=== PATIENT | male | born 1955 | race Caucasian/White ===

== ENCOUNTER 2019-07-26 12:24 | Emergency (ER) | payer OTHER ==
[2019-07-26 14:18] LABS: #Eosinphils 0.1 thou/uL (0.0-0.7); #Monocytes 0.4 thou/uL (0.11-0.59); #Neutrophils 1.9 thou/uL (1.40-6.50); %Basophils 1.4 % (0.0-1.0); %Eosinophils 1.5 % (0.0-10.0); %Lymphocytes 29.6 % (21.0-51.0); %Monocytes 11.4 % (0.0-10.0); %Neutrophils 56.1 % (42.0-75.0); Hemoglobin 8.5 g/dL (14.0-18.0); Mean Corpuscular HGB CONC 31.5 g/dL (32.0-36.0); Mean Corpuscular Hemoglobin 23.3 pg (27.0-31.0); Mean Platelet Volume 7.6 fL (7.4-10.4); Platelet Count 201 thou/uL (130-400); RBC Distribution Width 20.8 % (11.5-14.5); Red Blood Cell (RBC) Count 3.65 mill/uL (4.70-6.10); White Blood Cell (WBC) Count 3.5 thou/uL (4.8-10.8)
[2019-07-26 14:19] LABS: Anisocytosis SLIGHT = 6-15 cells (100X) (0-5/hpf); Elliptocytes SLIGHT = 2-5 cells (100X) (0-1/hpf); Hypochromia SLIGHT = 6-15 cells (100X) (0-5/hpf); MDiff Complete? YES; Microcytosis SLIGHT = 6-15 cells (100X) (0-5/hpf); Platelet Morphology Comment Appears Adequate; Target Cells SLIGHT = 2-5 cells (100X) (0-1/hpf)
[2019-07-26 14:25] LABS: ALT (SGPT) 39 U/L (8-55); AST (SGOT) 44 U/L (5-34); Albumin 3.5 g/dL (3.4-4.8); Alkaline Phosphatase 107 U/L (40-110); Anion Gap 15 mmol/L (10-20); BUN (Urea Nitrogen) 7 mg/dL (8.4-25.7); Bilirubin, Total 0.2 mg/dL (0.2-1.2); Calc. Creatinine Clearance 0 mL/min (70-130); Calcium 8.4 mg/dL (7.8-10.44); Carbon Dioxide 22 mmol/L (23-31); Chloride 85 mmol/L (98-107); Estimated GFR-MDRD Greater than 90; Globulin 3.8 g/dL (2.4-3.5); Glucose 142 mg/dL (80-115); Potassium 4.5 mmol/L (3.5-5.1); Protein, Total 7.3 g/dL (5.8-8.1)
[2019-07-26] MEDS ORDERED: Cefepime 2 GM VIAL ONE (14:27)
[2019-07-26] MEDS ORDERED: Sodium Chloride 0.9% 100 ML ONE (14:27)
[2019-07-26 14:34] LABS: Sodium 117 mmol/L (136-145)
--- NOTE | 2019-07-26 14:43 | RAD ---
RIGHT WRIST TWO VIEW: 07/26/19 HISTORY: Injury. COMPARISON: None. FINDINGS: Evidence of proximal row carpectomy change with removal of the scaphoid. There are erosive changes of the scaphoid fossa. 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 Large subcortical cyst of the distal radius at the lunate fossa. There is extensive soft tissue swelling of the wrist. Large joint effusion. IMPRESSION: 1. Erosive changes of the distal articular surface of the radius with large joint effusion yevgeniy rning for underlying septic arthritis. 2. 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 POS: [facility]
[2019-07-26] MEDS ORDERED: carBAMazepine 200 MG TAB PO SCH (15:15)
[2019-07-26] MEDS ORDERED: hydrALAZINE 25 MG TAB PO SCH (15:15)
[2019-07-26] MEDS ORDERED: DULoxetine 30 MG CAP PO SCH (15:15)
== END 2019-07-26 18:12 | disposition short-term general hospital (02) ==
LOC: NAV ERS 12:24
DX: M25.531 Pain in right wrist (principal); D64.9 Anemia, unspecified; E87.1 Hypo-osmolality and hyponatremia; L08.0 Pyoderma; K21.9 Gastro-esophageal reflux disease without esophagitis; D50.9 Iron deficiency anemia, unspecified; I10 Essential (primary) hypertension; M19.90 Unspecified osteoarthritis, unspecified site; M86.9 Osteomyelitis, unspecified; J44.9 Chronic obstructive pulmonary disease, unspecified; F32.9 Major depressive disorder, single episode, unspecified; Z79.899 Other long term (current) drug therapy; Z79.51 Long term (current) use of inhaled steroids; Z79.82 Long term (current) use of aspirin
CPT/HCPCS: 80053; 85025; 86140; 87040; 93005; 96365; J0692; J3490

== ENCOUNTER 2021-04-05 21:59 | Emergency (ER) | payer OTHER ==
[2021-04-05] MEDS ORDERED: Ondansetron PF 4 MG/2 ML Vial ONE (23:30)
[2021-04-05] MEDS ORDERED: Morphine 4 MG/ML VIAL ONE (23:30)
[2021-04-06] MEDS ORDERED: Morphine 4 MG/ML VIAL ONE (01:09)
[2021-04-06 02:01] LABS: SARS-CoV-2 NAA Rapid Test DETECTED (NotDetected)
== END 2021-04-06 01:30 | disposition short-term general hospital (02) ==
LOC: NAV ERS 21:59
DX: U07.1 COVID-19 (principal); S72.002A Fracture of unspecified part of neck of left femur, initial encounter for closed fracture; K21.9 Gastro-esophageal reflux disease without esophagitis; E87.1 Hypo-osmolality and hyponatremia; D50.9 Iron deficiency anemia, unspecified; I10 Essential (primary) hypertension; M19.90 Unspecified osteoarthritis, unspecified site; M86.9 Osteomyelitis, unspecified; J44.9 Chronic obstructive pulmonary disease, unspecified; Z87.891 Personal history of nicotine dependence; Z79.899 Other long term (current) drug therapy; Z79.1 Long term (current) use of non-steroidal anti-inflammatories (NSAID); W05.0XXA Fall from non-moving wheelchair, initial encounter
CPT/HCPCS: 72100; 96374; 96375; 96376; J2270; J2405; U0002

== ENCOUNTER 2023-08-24 22:23 | Emergency (ER) | payer OTHER ==
[2023-08-24] MEDS ORDERED: Ketorolac Tromethamine 60 MG/2 ML VIAL ONE (23:01)
[2023-08-25] MEDS ORDERED: traMADol HCl 50 MG TAB ONE (00:22)
== END 2023-08-25 00:58 ==
LOC: EEVIPCON 22:23 → NAV ERS 22:23
DX: S43.152A Posterior dislocation of left acromioclavicular joint, initial encounter (principal); K21.9 Gastro-esophageal reflux disease without esophagitis; I10 Essential (primary) hypertension; I25.10 Atherosclerotic heart disease of native coronary artery without angina pectoris; Z87.891 Personal history of nicotine dependence; Z79.899 Other long term (current) drug therapy; W18.30XA Fall on same level, unspecified, initial encounter
CPT/HCPCS: 70450; 72125; 96372; J1885